=== PATIENT | female | born 1965 | race Caucasian/White ===

== ENCOUNTER 2017-06-27 06:51 | Day surgery (SDC) | payer OTHER ==
[2017-06-26 09:49] VITALS: BMI 29.3
[2017-06-27] MEDS ORDERED: LIDOCAINE HCL/PF 2% SDV 5ML VIAL ONE (08:17)
[2017-06-27] MEDS ORDERED: SUCCINYLCHOLINE CHLORIDE 200 MG/10 ML VIAL ONE (08:17)
[2017-06-27] MEDS ORDERED: PROPOFOL 20 ML ONE ×5 (08:17)
[2017-06-27 08:43] VITALS: TEMP 98.1
[2017-06-27 09:54] VITALS: BP 118/80; PULSE 73
--- NOTE | 2017-06-30 13:06 | PATH ---
Surgical Pathology Report Patient Name: PAVAN ONEAL [facility]. Rec. #: [id number] /Age/Gender: 1965 (Age: 51) / F Account: [id number] Location: [facility]-ENDOSCOPY Taken: 06/27/2017 Received: 06/27/2017 Reported: 06/30/2017 Physicians: Justin Bolivar M.D. Specimen(s) Received A: BX ANTRUM B: BX GASTRIC BODY ULCER C: BX DISTAL ESOPHAGUS Clinical History GERD Ulcer gastric body Final Diagnosis A. STOMACH, ANTRUM, BIOPSY: GASTRIC ANTRAL MUCOSA WITH MODERATE CHRONIC GASTRITIS AND MILD REACTIVE GASTROPATHY. IMMUNOSTAIN FOR H. PYLORI IS NEGATIVE FOR ORGANISMS. B. STOMACH, BODY, ULCER, BIOPSY: GASTRIC OXYNTIC MUCOSA WITH MODERATE CHRONIC GASTRITIS. IMMUNOSTAIN FOR H. PYLORI IS NEGATIVE FOR ORGANISMS. C. ESOPHAGUS, DISTAL, BIOPSY: SQUAMOUS EPITHELIUM WITH CHRONIC INFLAMMATION AND REFLUX CHANGES. NO COLUMNAR EPITHELIUM PRESENT (NO INTESTINAL METAPLASIA/HOPKINS'S ESOPHAGUS IDENTIFIED). Electronically Signed Jose Tinsley M.D. Gross Description A. Received in formalin, labeled "biopsy antrum" is a andrews, irregular portion of soft tissue measuring there a 0.2 cm in greatest dimension. The specimen is submitted in toto in one cassette. B. Received in formalin, labeled "biopsy gastric body ulcer" is a andrews, irregular portion of soft tissue measuring 0.3 cm in greatest dimension. The specimen is submitted in toto in one cassette. C. Received in formalin, labeled "biopsy distal esophagus" are 2 andrews, irregular portions of soft tissue measuring 0.1 and 0.3 cm in greatest dimension. The specimens are submitted in toto in one cassette. 06/27/201706/27/2017
== END 2017-06-27 09:54 | disposition home or self-care (01) ==
LOC: JASU-ENDO 06:51
PROVIDERS: ATTEND Internal Medicine Gastroenterology
PROC: 0DB68ZX Excision of Stomach, Via Natural or Artificial Opening Endoscopic, Diagnostic (ICD-10-PCS; principal; 2017-06-27 08:00)
DX: K21.9 Gastro-esophageal reflux disease without esophagitis (principal); K25.9 Gastric ulcer, unspecified as acute or chronic, without hemorrhage or perforation
CPT/HCPCS: 88305-TC; 88342-TC

== ENCOUNTER 2022-08-30 06:05 | Day surgery (SDC) | payer OTHER ==
[2022-08-27 13:36] VITALS: BMI 31.4
[2022-08-30 06:51] VITALS: RESP 18; TEMP 98.1
[2022-08-30] MEDS ORDERED: DEXAMETHASONE SOD PHOSPHATE/PF 10 MG/ML SDV ONE (07:08)
[2022-08-30] MEDS ORDERED: BUPIVACAINE HCL/PF 0.5% (5 MG/ML) 30 ML VIAL IJ ONE (07:08)
[2022-08-30] MEDS ORDERED: ACETAMINOPHEN INJECTION 100 ML IVPB ONE (07:08)
[2022-08-30] MEDS ORDERED: PROPOFOL 20 ML ONE (07:12)
[2022-08-30] MEDS ORDERED: MIDAZOLAM HCL 2 MG/2 ML SINGLE DOSE VIAL ONE (07:12)
[2022-08-30] MEDS ORDERED: SUCCINYLCHOLINE CHLORIDE 200 MG/10 ML SYRINGE ONE (07:13)
[2022-08-30] MEDS ORDERED: BUPIVACAINE HCL/EPINEPHRINE/PF 30 ML VIAL IJ ONE (07:24)
[2022-08-30] MEDS ORDERED: ONDANSETRON 4 MG/2 ML VIAL ONE (08:00)
[2022-08-30] MEDS ORDERED: SEVOFLURANE 250 ML BTL ONE (08:00)
[2022-08-30] MEDS ORDERED: DEXAMETHASONE SOD PHOSPHATE 4 MG/1 ML VIAL ONE (08:00)
[2022-08-30] MEDS ORDERED: KETOROLAC TROMETHAMINE 30 MG/1 ML VIAL ONE (08:02)
[2022-08-30] MEDS ORDERED: VANCOMYCIN 1,000 MG VIAL (RESTRICTED TO ID ONLY) ONE ×2 (09:15→09:38)
[2022-08-30] MEDS ORDERED: ACETAMINOPHEN 325 MG TABLET (FP) PO PRN (10:18)
[2022-08-30] MEDS ORDERED: ONDANSETRON 4 MG/2 ML VIAL IVPUSH PRN (10:18)
[2022-08-30] MEDS ORDERED: oxyCODONE HCL 5 MG TABLET PO PRN ×2 (10:18)
[2022-08-30] MEDS ORDERED: LACTATED RINGERS SOLUTION 1,000 ML IV SCH (10:30)
[2022-08-30] MEDS ORDERED: FENTANYL CITRATE/PF 50 MCG/ML VIAL ONE ×2 (10:44→11:18)
[2022-08-30] MEDS ORDERED: oxyCODONE HCL 5 MG TABLET ONE (12:36)
[2022-08-30 13:19] VITALS: BP 135/84; PULSE 77
== END 2022-08-30 13:10 | disposition home or self-care (01) ==
LOC: FASU 06:05
PROVIDERS: ATTEND Orthopaedic Surgery
PROC: 0RP Upper Joints, Removal (ICD-10-PCS; 2022-08-30)
PROC: 0RBJ4ZZ Excision of Right Shoulder Joint, Percutaneous Endoscopic Approach (ICD-10-PCS; principal; 2022-08-30 08:17)
PROC: 0LS34ZZ Reposition Right Upper Arm Tendon, Percutaneous Endoscopic Approach (ICD-10-PCS; 2022-08-30 08:17)
PROC: 0RBJ0ZZ Excision of Right Shoulder Joint, Open Approach (ICD-10-PCS; 2022-08-30 08:17)
DX: S46.011D Strain of muscle(s) and tendon(s) of the rotator cuff of right shoulder, subsequent encounter (principal); S43.431D Superior glenoid labrum lesion of right shoulder, subsequent encounter; T84.116D Breakdown (mechanical) of internal fixation device of bone of right lower leg, subsequent encounter; T84.84XD Pain due to internal orthopedic prosthetic devices, implants and grafts, subsequent encounter; M75.21 Bicipital tendinitis, right shoulder; M75.51 Bursitis of right shoulder; M65.811 Other synovitis and tenosynovitis, right shoulder; M19.011 Primary osteoarthritis, right shoulder; M75.01 Adhesive capsulitis of right shoulder; X58.XXXD Exposure to other specified factors, subsequent encounter
CPT/HCPCS: 88304-TC; 94760